=== PATIENT | male | born 1985 | race American Indian/Alaskan Native ===

== ENCOUNTER 2017-08-26 03:36 | Emergency (ER) | payer SELFPAY ==
[2017-08-26 08:37] LABS: Bacteria,Urine 1+ /HPF (Negative); Bilirubin,Urine NEG (Negative); Blood,Urine NEG (Negative); Color,Urine Yellow (Yellow); Mucus,Urine FEW /HPF; Nitrite,Urine NEG (Negative); Protein,Urine <15 mg/dL mg/dL (Negative)
--- NOTE | 2017-08-26 08:43 | Emergency Department Report ---
ED Male HPI - General Chief complaint: Urogenital-Male Stated complaint: H/A; PENILE D/C Time Seen by Provider: 08/26/17 08:09 Source: patient Mode of arrival: Ambulatory Limitations: No Limitations - History of Present Illness Initial comments: 32-year-old male past medical history none presents with complaint of 5 dysuria and white to yellow penile discharge. Patient denies abdominal pain fever chills nausea vomiting testicular pain or swelling. Patient states he has multiple sex partners and engages in unprotected sex. Both oral and anal. Male sex partners. Patient is awake alert and oriented 3 not in acute distress. States discharges staining his underwear. MD Complaint: penile discharge, dysuria Onset/Timin -: days(s) Location: penis Radiation: none Quality: burning Consistency: intermittent Worsens with: urination new medication discharge - Related Data Sexually active: Yes Previous Rx's Medication Instructions Recorded Last Taken Type Methocarbamol [Robaxin TAB] 750 mg PO Q8H PRN #21 tablet 08/09/15 Unknown Rx traMADol [Ultram 50 MG tab] 50 mg PO Q6HR PRN #20 tablet 08/09/15 Unknown Rx Allergies Allergy/AdvReac Type Severity Reaction Status Date / Time No Known Allergies Allergy Unverified 08/08/15 22:06 ED Review of Systems ROS: Stated complaint: H/A; PENILE D/C Other details as noted in HPI Constitutional: denies: chills, fever Eyes: denies: eye pain, eye discharge, vision change ENT: denies: ear pain, throat pain Respiratory: denies: cough, shortness of breath, wheezing Cardiovascular: denies: chest pain, palpitations Endocrine: no symptoms reported Gastrointestinal: denies: abdominal pain, nausea, diarrhea Genitourinary: dysuria. denies: urgency Musculoskeletal: denies: back pain, joint swelling, arthralgia Skin: denies: rash, lesions Neurological: denies: headache, weakness, paresthesias Psychiatric: denies: anxiety, depression Hematological/Lymphatic: denies: easy bleeding, easy bruising ED Past Medical Hx - Past Medical History Previous Medical History?: No - Surgical History Past Surgical History?: No - Social History Smoking Status: Never Smoker Substance Use Type: Alcohol - Medications Home Medications: Home Medications Medication Instructions Recorded Confirmed Last Taken Type Methocarbamol [Robaxin TAB] 750 mg PO Q8H PRN #21 tablet 08/09/15 Unknown Rx traMADol [Ultram 50 MG tab] 50 mg PO Q6HR PRN #20 tablet 08/09/15 Unknown Rx ED Physical Exam - General Limitations: No Limitations General appearance: alert, in no apparent distress - Head Head exam: Present: atraumatic, normocephalic - Eye Eye exam: Present: normal appearance, PERRL, EOMI - ENT ENT exam: Present: mucous membranes moist - Neck Neck exam: Present: normal inspection - Respiratory Respiratory exam: Present: normal lung sounds bilaterally. Absent: respiratory distress - Cardiovascular Cardiovascular Exam: Present: regular rate, normal rhythm. Absent: systolic murmur, diastolic murmur, rubs, gallop - GI/Abdominal GI/Abdominal exam: Present: soft, normal bowel sounds - Rectal Rectal exam: Present: deferred - exam: Present: urethral discharge (whitish yellowish urethral discharge) External exam: Present: normal external exam - Extremities Exam Extremities exam: Present: normal inspection - Back Exam Back exam: Present: normal inspection - Neurological Exam Neurological exam: Present: alert, oriented X3, CN II-XII intact, normal gait - Psychiatric Psychiatric exam: Present: normal affect, normal mood - Skin Skin exam: Present: warm, dry, intact, normal color. Absent: rash ED Course Vital Signs 08/26/17 06:03 Temperature 98.3 F Pulse Rate 71 Respiratory 18 Rate Blood Pressure 134/74 O2 Sat by Pulse 97 Oximetry ED Medical Decision Making - Medical Decision Making A/P: Urethritis 1-patient empirically treated with azithromycin and ceftriaxone 2-GC cultures sent 3-patient given follow-up with primary care Critical care attestation.: If time is entered above; I have spent that time in minutes in the direct care of this critically ill patient, excluding procedure time. ED Disposition Clinical Impression: Urethritis Disposition: DC-01 TO HOME OR SELFCARE Is pt being admited?: No Does the pt Need Aspirin: No Condition: Stable Instructions: Nonspecific Urethritis in Men (ED), Chlamydia Infection (ED) Referrals: [facility] [Outside] - 3-5 Days [facility] [Outside] - 3-5 Days Forms: STI Treatment and Prevention, Work/School Release Form(ED) Time of Disposition: 09:27
[2017-08-26 09:14] VITALS: BP 134/71
[2017-08-26] MEDS ORDERED: ROCEPHIN IM ONE (09:24)
[2017-08-26] MEDS ORDERED: ZITHROMAX PO ONE (09:24)
[2017-08-26] MEDS ORDERED: XYLOCAINE 1% MPF 5 mL INFILTRATI ONE (09:24)
== END 2017-08-26 10:21 | disposition home or self-care (01) ==
LOC: ED 03:36
DX: N34.2 Other urethritis (principal)
CPT/HCPCS: 81001; 87591; 96372; 99283; J0696